=== PATIENT | male | born 1960 | race African-American/Black ===

== ENCOUNTER 2021-04-25 05:42 | Emergency (ER) | payer BC ==
[2021-04-25] MEDS ORDERED: Lactated Ringers 1,000 ML IV ONE (06:21)
[2021-04-25] MEDS ORDERED: Ketorolac 15 MG/ML SDV IVPUSH ONE (06:21)
[2021-04-25] MEDS ORDERED: Sodium Chloride 0.9% 10 ML Syringe FLUSH PRN (06:21)
[2021-04-25] MEDS ORDERED: Sodium Chloride 0.9% 2.5 ML Syringe FLUSH PRN (06:21)
[2021-04-25 07:08] LABS: BLOOD UREA NITROGEN,BUN 20 mg/dL (7.0-18.0); CARBON DIOXIDE,CO2 25.6 mmol/L (21.0-32.0); CHLORIDE,CL 105 mmol/L (98-107); GLUCOSE RANDOM 94 mg/dL (74-106); POTASSIUM,K 4.3 mmol/L (3.5-5.1); SODIUM,NA 141 mmol/L (136-148)
--- NOTE | 2021-04-25 08:17 | CT ---
HISTORY: Left flank pain. COMPARISON: 02/24/2021. TECHNIQUE: CT of the abdomen and pelvis. No intravenous contrast. Coronal/sagittal reconstruction images. FINDINGS: Lung bases: There is no pleural or pericardial effusion. The heart size is normal. There is atelectasis at both lung bases. Subcentimeter pulmonary nodules in the right middle lobe, stable, and follow-up is suggested per Fleischner society guidelines. These are of low suspicion. The largest measures 5 mm in image 14, series 201. Abdomen/pelvis: Liver morphology is non cirrhotic. There is no perihepatic ascites. There is no radiopaque gallstone. The spleen size is normal. There is no adrenal mass. There is no hydronephrosis or perinephric fluid collection. There are multiple hypoattenuating lesions in both kidneys, which may represent hemorrhagic cysts. The largest is seen in the posterior cortex of the left kidney, which measures 10 mm in image 69. This may be further assessed with ultrasound on a nonemergent basis. There is no pancreatic mass or glandular atrophy. No splenomegaly. The prostate is enlarged. Suggest correlation with digital rectal exam/PSA. The prostate measures 6.1 x 6.3 cm in AP and transverse dimensions. There is a stone present within the urinary bladder, which is not seen near the left UVJ, measuring 12 mm, image 139, series 201. This measures 1,257 Hounsfield units. The extraperitoneal space of Retzius is clear. There is no pneumatosis, portal venous gas, or drainable fluid collection. There is no pneumoperitoneum. Nonenlarged inguinal lymph nodes. There is no pelvic sidewall, retroperitoneal, or gastrohepatic ligament adenopathy. The bone windows demonstrate sclerotic foci in the right proximal femur. These are stable, and most likely benign bone islands. No suspicious bone lesions are seen. Vertebral body heights are maintained on sagittal reconstruction images. IMPRESSION: 1. Large calculus in the urinary bladder, which is now seen near the left UVJ. 2. Enlargement of the prostate gland, with diffuse thickening of the urinary bladder wall. Additional hyperdensities within the bladder may be represent partial volume averaging from the base of the prostate. Urologic consultation is suggested. 3. There is no obstructive urolith, hydronephrosis, or perinephric fluid collection. 4. No abdominal or pelvic lymphadenopathy by size criteria. 5. Stable subcentimeter pulmonary nodules in the right lung. Follow-up suggested per Fleischner society guidelines. Please note that all CT scans at this facility use dose modulation, iterative reconstruction, and/or weight-based dosing when appropriate to reduce radiation dose to as low as reasonably achievable. Dictated by Madhu Garrido MD @ 04/25/2021 8:15:[address] Madhu Garrido @ Apr 25 2021 8:15AM
--- NOTE | 2021-04-25 13:54 | EDM.PDOC ---
ED HPI GENERAL MEDICAL PROBLEM - General Chief Complaint: Back Pain or Injury Stated Complaint: LOWER BACK PAIN Time Seen by Provider: 04/25/21 06:02 - Related Data Allergies Allergy/AdvReac Type Severity Reaction Status Date / Time bee stings Allergy Severe Swelling Uncoded 04/25/21 05:59 Home Meds: Home Meds . [No Known Home Meds] 07/27/14 [History] Past Medical History - Past Health History Medical/Surgical History: Denies Medical/Surgical History HEENT History: Reports: None Cardiovascular History: Reports: None Respiratory History: Reports: None Gastrointestinal History: Reports: Colon Polyp, Hemorrhoids, Helicobacter Pylori, Other (See Below) Other Gastrointestinal History: hx H pylori Genitourinary History: Reports: BPH, Prostate Disorder, Renal Calculus Musculoskeletal History: Reports: Back Pain, Chronic Other Musculoskeletal History: chronic lower sciatic back and rt leg pain Neurological History: Reports: None Psychiatric History: Reports: None Endocrine/Metabolic History: Reports: None Hematologic History: Reports: None Immunologic History: Reports: None Oncologic (Cancer) History: Reports: None Dermatologic History: Reports: Other (See Below) Other Dermatologic History: rash in groin area - Past Surgical History Head Surgeries/Procedures: Reports: None HEENT Surgical History: Reports: None Cardiovascular Surgical History: Reports: None Respiratory Surgical History: Reports: None GI Surgical History: Reports: Colonoscopy Male Surgical History: Reports: None Endocrine Surgical History: Reports: None Neurological Surgical History: Reports: None Musculoskeletal Surgical History: Reports: None Oncologic Surgical History: Reports: None Social & Family History - Family History Family Medical History: No Pertinent Family History - Tobacco Use Tobacco Use Status *Q: Never Tobacco User - Recreational Drug Use Recreational Drug Use: No Course - Vital Signs Last Recorded V/S: Last Vital Signs Temp 36.8 C 04/25/21 08:38 Pulse 62 04/25/21 08:38 Resp 18 04/25/21 08:38 BP 121/72 04/25/21 08:38 Pulse Ox 98 04/25/21 08:38 - Orders/Labs/Meds Orders: Active Orders 24 hr Category Date Time Status CULTURE URINE [MREF] Stat Lab 04/25/21 06:35 Received Saline Lock Insert [OM.PC] Stat Oth 04/25/21 06:21 Ordered Labs: Laboratory Tests 04/25/21 04/25/21 04/25/21 Range/Units 06:35 06:35 06:35 WBC (4.0-11.0) K/uL RBC (4.50-5.90) M/uL Hgb (13.0-17.0) g/dL Hct (38.0-50.0) % MCV (80.0-98.0) fL MCH (27.0-32.0) pg MCHC (31.0-37.0) g/dL RDW Std Deviation (28.0-62.0) fl RDW Coeff of Yolanda (11.0-15.0) % Plt Count (150-400) K/uL MPV (7.40-12.00) fL Neut % (Auto) (48.0-80.0) % Lymph % (Auto) (16.0-40.0) % [place] % (Auto) (0.0-15.0) % Eos % (Auto) (0.0-7.0) % Baso % (Auto) (0.0-1.5) % Neut # (Auto) (1.4-5.7) K/uL Lymph # (Auto) (0.6-2.4) K/uL [place] # (Auto) (0.0-0.8) K/uL Eos # (Auto) (0.0-0.7) K/uL Baso # (Auto) (0.0-0.1) K/uL Nucleated RBC % /100WBC Nucleated RBCs # K/uL INR 0.99 Sodium 141 (136-148) mmol/L Potassium 4.3 (3.5-5.1) mmol/L Chloride 105 (98-107) mmol/L Carbon Dioxide 25.6 (21.0-32.0) mmol/L BUN 20 H (7.0-18.0) mg/dL Creatinine 1.2 (0.8-1.3) mg/dL Est Cr Clr Drug Dosing TNP Estimated GFR (MDRD) > 60.0 ml/min Glucose 94 (74-106) mg/dL Lactic Acid (0.4-2.0) mmol/L Calcium 9.0 (8.5-10.1) mg/dL Total Bilirubin 0.3 (0.2-1.0) mg/dL AST 26 (15-37) IU/L ALT 26 (14-63) IU/L Alkaline Phosphatase 64 (46-116) U/L Total Protein 7.0 (6.4-8.2) g/dL Albumin 3.5 (3.4-5.0) g/dL Globulin 3.5 (2.6-4.0) g/dL Albumin/Globulin Ratio 1.0 (0.9-1.6) Urine Color YELLOW Urine Appearance SLT CLOUDY Urine pH 5.5 (5.0-8.0) Ur Specific [place] >= 1.030 (1.001-1.035) Urine Protein TRACE H (NEGATIVE) mg/dL Urine Glucose (UA) NEGATIVE (NEGATIVE) mg/dL Urine Ketones NEGATIVE (NEGATIVE) mg/dL Urine Occult Blood LARGE H (NEGATIVE) Urine Nitrite NEGATIVE (NEGATIVE) Urine Bilirubin NEGATIVE (NEGATIVE) Urine Urobilinogen 0.2 (<2.0) EU/dL Ur Leukocyte Esterase SMALL H (NEGATIVE) Urine RBC 10-14 (0-2/HPF) Urine WBC 25-30 (0-5/HPF) Ur Epithelial Cells FEW (NONE-FEW) Urine Bacteria FEW (NEGATIVE) 04/25/21 04/25/21 Range/Units 06:35 06:35 WBC 4.83 (4.0-11.0) K/uL RBC 4.73 (4.50-5.90) M/uL Hgb 14.4 (13.0-17.0) g/dL Hct 41.1 (38.0-50.0) % MCV 86.9 (80.0-98.0) fL MCH 30.4 (27.0-32.0) pg MCHC 35.0 (31.0-37.0) g/dL RDW Std Deviation 46.8 (28.0-62.0) fl RDW Coeff of Yolanda 15 (11.0-15.0) % Plt Count 246 (150-400) K/uL MPV 10.10 (7.40-12.00) fL Neut % (Auto) 48.4 (48.0-80.0) % Lymph % (Auto) 35.6 (16.0-40.0) % [place] % (Auto) 7.7 (0.0-15.0) % Eos % (Auto) 7.9 H (0.0-7.0) % Baso % (Auto) 0.4 (0.0-1.5) % Neut # (Auto) 2.3 (1.4-5.7) K/uL Lymph # (Auto) 1.7 (0.6-2.4) K/uL [place] # (Auto) 0.4 (0.0-0.8) K/uL Eos # (Auto) 0.4 (0.0-0.7) K/uL Baso # (Auto) 0.0 (0.0-0.1) K/uL Nucleated RBC % 0.0 /100WBC Nucleated RBCs # 0 K/uL INR Sodium (136-148) mmol/L Potassium (3.5-5.1) mmol/L Chloride (98-107) mmol/L Carbon Dioxide (21.0-32.0) mmol/L BUN (7.0-18.0) mg/dL Creatinine (0.8-1.3) mg/dL Est Cr Clr Drug Dosing Estimated GFR (MDRD) ml/min Glucose (74-106) mg/dL Lactic Acid 1.2 (0.4-2.0) mmol/L Calcium (8.5-10.1) mg/dL Total Bilirubin (0.2-1.0) mg/dL AST (15-37) IU/L ALT (14-63) IU/L Alkaline Phosphatase (46-116) U/L Total Protein (6.4-8.2) g/dL Albumin (3.4-5.0) g/dL Globulin (2.6-4.0) g/dL Albumin/Globulin Ratio (0.9-1.6) Urine Color Urine Appearance Urine pH (5.0-8.0) Ur Specific [place] (1.001-1.035) Urine Protein (NEGATIVE) mg/dL Urine Glucose (UA) (NEGATIVE) mg/dL Urine Ketones (NEGATIVE) mg/dL Urine Occult Blood (NEGATIVE) Urine Nitrite (NEGATIVE) Urine Bilirubin (NEGATIVE) Urine Urobilinogen (<2.0) EU/dL Ur Leukocyte Esterase (NEGATIVE) Urine RBC (0-2/HPF) Urine WBC (0-5/HPF) Ur Epithelial Cells (NONE-FEW) Urine Bacteria (NEGATIVE) Meds: Medications Discontinued Medications Generic Name Dose Route Start Last Admin Trade Name Freq PRN Reason Stop Dose Admin Lactated Ringer's 1,000 mls @ 999 mls/hr 04/25/21 06:21 04/25/21 06:44 Ringers, Lactated IV 04/25/21 07:21 999 mls/hr .BOLUS ONE Administration Ketorolac Tromethamine 15 mg 04/25/21 06:21 04/25/21 06:42 Ketorolac 15 Mg/Ml Sdv IVPUSH 04/25/21 06:22 15 mg ONETIME ONE Administration Sodium Chloride 10 ml 04/25/21 06:21 04/25/21 06:43 Sodium Chloride 0.9% 10 Ml Syringe FLUSH 10 ml ASDIRECTED PRN Administration Keep Vein Open Sodium Chloride 2.5 ml 04/25/21 06:21 04/25/21 06:43 Sodium Chloride 0.9% 2.5 Ml Syringe FLUSH 2.5 ml ASDIRECTED PRN Administration Keep Vein Open Departure - Departure Disposition: Home, Self-Care 01 Clinical Impression: Spasm - Discharge Information Instructions: Muscle Cramps and Spasms, [id number], Urinary Tract Infection, Adult, Pulmonary Nodule, [id number], Bladder Stone Referrals: PCP,None [Primary Care Provider] - Forms: ED Department Discharge Additional Instructions: Please take Keflex as prescribed until gone. Please follow up with Primary Care Physician in 3-5 days for referral for Urology. For your pain I would like you to use Tylenol and Ibuprofen. Please also use Ice and Heat as complementary Therapy. The following information is given to patients seen in the emergency department who are being discharged to home. This information is to outline your options for follow-up care. We provide all patients seen in our emergency department with a follow-up referral. The need for follow-up, as well as the timing and circumstances, are variable depending upon the specifics of your emergency department visit. If you don't have a primary care physician on staff, we will provide you with a referral. We always advise you to contact your personal physician following an emergency department visit to inform them of the circumstance of the visit and for follow-up with them and/or the need for any referrals to a consulting specialist. The emergency department will also refer you to a specialist when appropriate. This referral assures that you have the opportunity for follow-up care with a specialist. All of these measure are taken in an effort to provide you with optimal care, which includes your follow-up. Under all circumstances we always encourage you to contact your private physician who remains a resource for coordinating your care. When calling for follow-up care, please make the office aware that this follow-up is from your recent emergency room visit. If for any reason you are refused follow-up, please contact the [facility] Emergency Department at and asked to speak to the emergency department charge nurse. [facility] [address] [place] [address] [id number] [address] [address] Sepsis Event Note (ED) - Evaluation Sepsis Screening Result: No Definite Risk - Focused Exam Vital Signs: Vital Signs Temp Pulse Resp BP Pulse Ox 04/25/21 08:38 36.8 C 62 18 121/72 98 04/25/21 07:34 58 L 18 136/76 98 04/25/21 05:59 35.7 C L 61 20 134/80 98
--- NOTE | 2021-04-25 15:00 | PCM.SN.2 ---
- Free Text/Narrative Note: Patient was signed out to me by Dr. Parra pending laboratory results and reevaluation and possible need for CT for nephrolithiasis versus aortic dissection at 7 AM. I did reevaluate the patient and patient stated that for approximately 1 month now he has been experiencing left flank pain which she describes as cramping, squeezing, muscle squeezing at a rate of 4-5 out of 10. He states that this pain is intermittent. He states that this is radiating up to his kidneys on his left back. He denies any injury to his back and denies any abdominal pain, nausea or vomiting. He denies any chest pain or shortness of breath. He states that he has not yet tried any pain medications because he does not want medicati ons and does not take medication. He states that he comes in today because the pain was so severe that he could not get out of bed. He denies any dysuria, hematuria, penile discharge or testicular swelling or pain. He states that he does have a history of BPH status post TURP and was told that he had a kidney stone and possibly needs a cystoscopy however Dr. Aguilera is no longer seeing patients. He denies any associated fevers or chills. He states that movement exacerbates the pain. There are no relieving factors. He denies any rash or skin changes. Constitutional: Blood pressure at the time of my reevaluation was a systolic blood pressure of 136 and a diastolic blood pressure of 72. Heart rate was 60. Respiratory rate was 18 with an oxygen saturation with good pulse oximetry with good waveform was 98% on room air. The patient was afebrile on arrival. General: Middle-aged man who does not appear to be in acute distress Psychiatric: Appropriate mood and affect. Eyes: No scleral icterus or conjunctival erythema ENMT: Moist mucous membranes. No pharyngeal erythema Cardiovascular: Regular, rate, and rhythm. No gallops, murmurs, or rubs. Bilateral upper extremity and lower extremity pulses symmetric and intact. No peripheral edema. No JVD. Respiratory: Lungs clear to auscultation bilaterally. No wheezes, rales, or rhonchi. Gastrointestinal: Soft, non-tender, non-distended. Normoactive bowel sounds Genitourinary: No suprapubic tenderness no CVA tenderness. Musculoskeletal: Normal range of motion. There is left lumbar paraspinal muscle tenderness on exam with some tight musculature Skin: No lesions or abrasions. Neurological: Alert, GCS 15 strength and sensation grossly intact in upper and lower extremities bilaterally The patient's labs had resulted prior to my reevaluation all of which were normal except for a positive urinalysis. Given his history of prior kidney stone, TURP I do believe that we need to rule out an obstructed kidney stone given the left flank pain. At this time the patient's blood pressure is normal, therefore I think aortic dissection is very low on my differential. I do not believe any work-up for this is indicated. I did offer the patient Toradol, lidocaine patch, other pain medications and the patient did not want any at this time as he does not take any pain medications. Laboratory: CBC is unremarkable. INR is normal. CMP reveals elevated BUN at 20 and a creatinine of 1.2 otherwise unremarkable. Urinalysis was a clean catch and was small for leukocyte esterase, negative for nitrites, and large for blood. 25-30 WBCs, 10-14 RBCs interpretation: Positive The radiological images were viewed by myself along with reading the report from the radiologist. CT abdomen pelvis without contrast reveals large calculus in the urinary bladder which was seen in prior CT however is now at the left UVJ, enlargement of the prostate gland with diffuse thickening of the urinary bladder wall. There is no obstructive urolith, hydronephrosis or perinephric fluid collection. There is stable subcentimeter pulmonary nodules in the right lung. After imaging I did discuss the results with the patient. I did provide the patient with a prescription for Keflex for the urinary tract infection. At this time I did discuss with him that if he had any worsening symptoms he need to return to the emergency department. I did discuss all the findings with him on his CT I discussed that he need to follow-up with primary care physician for which I provided him information on who to contact for referral to urology and reevaluation for the pulmonary nodule. He was amenable discharge at this time and had no further questions DISPOSITION: The patient was discharged home in stable condition. The patient will follow up with primary care physician in 3 to 5 days CONDITION: Fair PROCEDURES: None FINAL IMPRESSION(S)/DIAGNOSES: 1. Acute lumbar muscle strain 2. Urinary bladder calculus 3. Pulmonary nodule, right lung Tigre Boudreaux M.D.
== END 2021-04-25 08:38 | disposition home or self-care (01) ==
LOC: MW.ED 05:42
DX: S39.012A Strain of muscle, fascia and tendon of lower back, initial encounter (principal); R91.1 Solitary pulmonary nodule; N21.0 Calculus in bladder; X58.XXXA Exposure to other specified factors, initial encounter
CPT/HCPCS: 36415; 74176; 80053; 81001; 83605; 85025; 85610; 87086; 96374; 99284; J1885; J7120

== ENCOUNTER 2021-11-13 13:30 | Emergency (ER) | payer BC ==
[2021-11-13] MEDS ORDERED: cefTRIAXone 500 MG in Lidocaine 1% 1 ML IM ONE (17:01)
[2021-11-15 16:07] LABS: C.TRACHOMATIS BY TMA Negative (Negative); N.GONORRHOEAE BY TMA Negative (Negative)
== END 2021-11-13 17:18 | disposition home or self-care (01) ==
LOC: MW.ED 13:30
DX: N45.2 Orchitis (principal); Z91.030 Bee allergy status
CPT/HCPCS: 76870; 81001; 87086; 87491; 87591; 93976; 96372; 99284; J0696

== ENCOUNTER 2024-12-10 11:38 | Emergency (ER) | payer BC | END 2024-12-10 14:35 | disposition home or self-care (01) | LOC: MW.ED 11:38 | DX: L03.211 Cellulitis of face (principal); F17.210 Nicotine dependence, cigarettes, uncomplicated; Z75.8 Other problems related to medical facilities and other health care; Z91.030 Bee allergy status; Z79.899 Other long term (current) drug therapy | CPT/HCPCS: 99283 ==